=== PATIENT | male | born 1965 | race African-American/Black ===

== ENCOUNTER 2016-08-22 16:53 | Emergency (ER) | payer OTHER, BC ==
[~2016-08-22] VITALS: Ht 182.9 cm; Wt 134.3 kg
[~2016-08-22 16:53] MED LIST: ASPIR-LOW81 MG PO; DICYCLOMINE HCL10 MG PO; FENOFIBRATE160 M1 PO; HYDROCHLOROTHIA25 MG PO; HYDROCODON-ACE1 EAC9 PO; JARDIANCE25 MG PO; LEVEMIR100 UNIT/2 SC; LO-DOSE ASPIRIN81 M2 PO; LOPRESSOR25 MG PO; NOVOLIN,HU100 UNITS/ SC; NOVOLOG MI100 UNIT/4 SC; SENNA LAX8.6 MG PO; TOUJEO SOL300 UNIT/1 SC; TRADJENTA5 MG PO; TRIBENZOR 40-11 EAC1 PO; VALSARTAN-HCTZ1 EAC3 PO
[2016-08-22 19:25] VITALS: BP 193/110
== END 2016-08-22 19:26 | disposition home or self-care (01) ==
LOC: EME 16:53
DX: S33.5XXA Sprain of ligaments of lumbar spine, initial encounter (principal); V43.52XA Car driver injured in collision with other type car in traffic accident, initial encounter; Y92.410 Unspecified street and highway as the place of occurrence of the external cause; I10 Essential (primary) hypertension; E11.9 Type 2 diabetes mellitus without complications; Z79.4 Long term (current) use of insulin; Z79.84 Long term (current) use of oral hypoglycemic drugs; Z79.82 Long term (current) use of aspirin; E78.5 Hyperlipidemia, unspecified
CPT/HCPCS: 70450; 72125; 72131; 74176; 99281; 99284; J1885